=== PATIENT | male | born 1955 | race Caucasian/White ===

== ENCOUNTER 2018-03-19 13:18 | Emergency (ER) | payer MEDICARE ==
[~2018-03-19] VITALS: Ht 177.8 cm; Wt 57.0 kg
[~2018-03-19 13:18] MED LIST: CLON1TAB PO; GABA100C4 PO; LISI-363 PO; SIMV40 PO; ZOLO20CO PO; insulin pump
[2018-03-19 13:27] VITALS: BP 184/87; PULSE 74; RESP 19; TEMP 98.3; O2SAT 98
--- NOTE | 2018-03-19 13:57 | PD ---
HPI Chief Complaint: Skin Problem Time Seen by Provider: 13:39 Travel History International Travel<30 days: No Contact w/Intl Traveler<30days: No Traveled to known affect area: No History of Present Illness HPI The patient is a 62-year-old male who presents to the emergency department for redness and pain to the anterior aspect of the right forearm. The patient states he had an outpatient endoscopy performed on Wednesday, and IV was placed in the right arm, just proximal to the right hand. The patient went home and was feeling well, however, several days later noticed some redness of the volar aspect of the right forearm. The pain radiates up to the right anterior cubital fossa, he does notice red streak with some painful swollen lumps. He denies any fever, chills, or sweats. He is an insulin-dependent diabetic who is currently on an insulin pump. Symptoms are moderate. There are no current alleviating factors. He denies any history of DVT or prior thrombophlebitis. PFSH Past Medical History Anxiety: Yes Depression: Yes High Cholesterol: Yes Diabetes: Yes (TYPE 1) Diminished Hearing: No Hypertension: Yes Social History Alcohol Use: No Tobacco Use: Yes (/ PPD) Substance Use: No Allergies-Medications (Allergen,Severity, Reaction): Coded Allergies: No Known Allergies (Unverified , 06/17/16) Reported Meds & Prescriptions Reported Meds & Active Scripts Active Cleocin (Clindamycin HCl) 150 Mg Cap 150 Mg PO Q6H 7 Days Reported Gabapentin 300 Mg Cap 300 Mg PO BID Lisinopril 10 Mg Tab 10 Mg PO DAILY Simvastatin 40 Mg Tab 40 Mg PO HS Zoloft (Sertraline HCl) 25 Mg Tab 25 Mg PO DAILY Clonazepam 0.5 Mg Tab 0.5 Mg PO BID [insulin pump] Unknown Dose SQ DAILY PRN Simvastatin 40 mg (Simvastatin) 40 Mg Tab 1 Tab PO HS Lisinopril 20 mg (Lisinopril) 20 Mg Tab 1 Tab PO DAILY Clonazepam 1 Mg Tab 0.5 Mg PO Q8 Gabapentin 100 Mg Cap 0 PO Unknown [insulin pump] Zoloft (Sertraline HCl) 20 Mg/Ml Con 0 PO DAILY UNKNOWN DOSE Review of Systems Except as stated in HPI: all other systems reviewed are Neg General / Constitutional: No: Fever, Chills Cardiovascular: No: Chest Pain or Discomfort Respiratory: No: Shortness of Breath Gastrointestinal: No: Nausea, Vomiting Musculoskeletal: Positive: Edema, Pain Skin: Positive Other (As noted in the history of present illness) Endocrine: Positive: Other (Diabetic on an insulin pump) Physical Exam Narrative GENERAL: Awake, alert, pleasant 62-year-old male who appears his stated age and is in no acute respiratory distress. SKIN: Focused skin assessment warm/dry. HEAD: Atraumatic. Normocephalic. EYES: Pupils equal and round. No scleral icterus. No injection or drainage. ENT: No nasal bleeding or discharge. Mucous membranes pink and moist. NECK: Trachea midline. No JVD. CARDIOVASCULAR: Regular rate and rhythm. No murmur appreciated. RESPIRATORY: No accessory muscle use. Clear to auscultation. Breath sounds equal bilaterally. GASTROINTESTINAL: Abdomen soft, non-tender, nondistended. Hepatic and splenic margins not palpable. MUSCULOSKELETAL: The patient has visible thrombophlebitis on the volar aspect of the right forearm. There is an erythematous streak that goes from the volar aspect just proximal to the right hand up the volar aspect to the anterior cubital fossa and near the medial aspect of the proximal right humerus. There are some small painful lumps, presumably lymphadenitis, no significant epitrochlear lymphadenopathy noted. Positive right radial pulse. NEUROLOGICAL: Awake and alert. No obvious cranial nerve deficits. Motor grossly within normal limits. Normal speech. PSYCHIATRIC: Appropriate mood and affect; insight and judgment normal. Data Data Last Documented VS Vital Signs Date Time Temp Pulse Resp B/P (MAP) Pulse Ox O2 Delivery O2 Flow Rate FiO2 03/19/18 14:09 63 18 03/19/18 14:01 98.2 171/86 (114) 97 Room Air Orders Orders Complete Blood Count With Diff (03/19/18 13:50) Comprehensive Metabolic Panel (03/19/18 13:50) Blood Culture (03/19/18 13:50) Lactic Acid (03/19/18 13:50) Us Arm Venous Doppler (03/19/18 ) Sodium Chlor 0.9% 1000 Ml Inj (Ns 1000 M (03/19/18 14:00) Cefazolin 2 Gm Premix (Ancef 2 Gm Premix (03/19/18 14:00) Blood Glucose (03/19/18 13:50) Ed Discharge Order (03/19/18 16:13) Labs Laboratory Tests Test 03/19/18 14:00 White Blood Count 8.2 TH/MM3 Red Blood Count 4.36 MIL/MM3 Hemoglobin 13.8 GM/DL Hematocrit 40.3 % Mean Corpuscular Volume 92.3 FL Mean Corpuscular Hemoglobin 31.5 PG Mean Corpuscular Hemoglobin Concent 34.2 % Red Cell Distribution Width 14.2 % Platelet Count 250 TH/MM3 Mean Platelet Volume 8.0 FL Neutrophils (%) (Auto) 55.6 % Lymphocytes (%) (Auto) 25.2 % Monocytes (%) (Auto) 6.2 % Eosinophils (%) (Auto) 12.1 % Basophils (%) (Auto) 0.9 % Neutrophils # (Auto) 4.5 TH/MM3 Lymphocytes # (Auto) 2.1 TH/MM3 Monocytes # (Auto) 0.5 TH/MM3 Eosinophils # (Auto) 1.0 TH/MM3 Basophils # (Auto) 0.1 TH/MM3 CBC Comment DIFF FINAL Differential Comment Blood Urea Nitrogen 7 MG/DL Creatinine 0.66 MG/DL Random Glucose 162 MG/DL Total Protein 6.7 GM/DL Albumin 3.7 GM/DL Calcium Level 8.2 MG/DL Alkaline Phosphatase 83 U/L Aspartate Amino Transf (AST/SGOT) 21 U/L Alanine Aminotransferase (ALT/SGPT) 31 U/L Total Bilirubin 0.2 MG/DL Sodium Level 131 MEQ/L Potassium Level 3.9 MEQ/L Chloride Level 97 MEQ/L Carbon Dioxide Level 24.3 MEQ/L Anion Gap 10 MEQ/L Estimat Glomerular Filtration Rate 122 ML/MIN Lactic Acid Level 0.6 mmol/L MDM Medical Decision Making Medical Screen Exam Complete: Yes Emergency Medical Condition: Yes Medical Record Reviewed: Yes Interpretation(s) Laboratory Tests Test 03/19/18 14:00 White Blood Count 8.2 TH/MM3 Red Blood Count 4.36 MIL/MM3 Hemoglobin 13.8 GM/DL Hematocrit 40.3 % Mean Corpuscular Volume 92.3 FL Mean Corpuscular Hemoglobin 31.5 PG Mean Corpuscular Hemoglobin Concent 34.2 % Red Cell Distribution Width 14.2 % Platelet Count 250 TH/MM3 Mean Platelet Volume 8.0 FL Neutrophils (%) (Auto) 55.6 % Lymphocytes (%) (Auto) 25.2 % Monocytes (%) (Auto) 6.2 % Eosinophils (%) (Auto) 12.1 % Basophils (%) (Auto) 0.9 % Neutrophils # (Auto) 4.5 TH/MM3 Lymphocytes # (Auto) 2.1 TH/MM3 Monocytes # (Auto) 0.5 TH/MM3 Eosinophils # (Auto) 1.0 TH/MM3 Basophils # (Auto) 0.1 TH/MM3 CBC Comment DIFF FINAL Differential Comment Blood Urea Nitrogen 7 MG/DL Creatinine 0.66 MG/DL Random Glucose 162 MG/DL Total Protein 6.7 GM/DL Albumin 3.7 GM/DL Calcium Level 8.2 MG/DL Alkaline Phosphatase 83 U/L Aspartate Amino Transf (AST/SGOT) 21 U/L Alanine Aminotransferase (ALT/SGPT) 31 U/L Total Bilirubin 0.2 MG/DL Sodium Level 131 MEQ/L Potassium Level 3.9 MEQ/L Chloride Level 97 MEQ/L Carbon Dioxide Level 24.3 MEQ/L Anion Gap 10 MEQ/L Estimat Glomerular Filtration Rate 122 ML/MIN Lactic Acid Level 0.6 mmol/L Last Impressions Upper Extremity Ultrasound 03/19/18 0000 Signed Impressions: CONCLUSION: 1. The study is negative for deep venous thrombosis in the upper extremity. 2. Superficial occlusive thrombus in the cephalic vein. Differential Diagnosis Differential diagnosis includes lymphadenitis, lymphangitis, cellulitis, thrombophlebitis, DVT, bacteremia, septicemia. Narrative Course IV was established, labs are drawn and sent, and the patient was placed on cardiac telemetry monitoring and continuous pulse oximetry return. Ultrasound of the right upper extremity was ordered to rule out DVT. Blood culture and lactic acid were sent to lab. The patient was administered Ancef 2 g intravenously with 1 L of IV fluids. Bedside glucose was evaluated. The patient's bedside blood glucose was 169. White count is unremarkable. CMP is unremarkable except for glucose of 162 and sodium of 131. Lactic acid was within normal limits. Ultrasound is negative for DVT, does reveal superficial occlusive thrombus in the cephalic vein. The patient is advised to continue aspirin, apply warm compresses to the affected area, take antibiotics as directed. Diagnosis Primary Impression: Thrombophlebitis arm Patient Instructions: General Instructions Additional Instructions: Please provide the patient a copy of his ultrasound results and lab results at discharge. Antibiotics as directed. Warm compresses to the right forearm. Return if symptoms worsen or progress. Continue to take an aspirin daily. Med/Other Pt SpecificInfo: Prescription(s) given Scripts Clindamycin (Cleocin) 150 Mg Cap 150 MG PO Q6H for Infection for 7 Days, #28 CAP 0 Refills Prov: Ed Joseph MD 03/19/18 Disposition: 01 DISCHARGE HOME Condition: Stable Ed Joseph MD Mar 19, 2018 13:57
[2018-03-19] MEDS ORDERED: ceFAZolin 2 GM PREMIX 50 ML IV ONE (14:00)
[2018-03-19] MEDS ORDERED: SODIUM CHLOR 0.9% 1000 ML INJ 1,000 ML IV ONE (14:00)
[2018-03-19 14:01] VITALS: BP 171/86; PULSE 68; RESP 18; TEMP 98.2; O2SAT 97
[2018-03-19] MEDS ORDERED: CLON0.5T PO (14:14)
[2018-03-19] MEDS ORDERED: ZOLO25TA PO (14:14)
[2018-03-19] MEDS ORDERED: GABA300C5 PO (14:14)
[2018-03-19] MEDS ORDERED: LISI10TA3 PO (14:14)
[2018-03-19] MEDS ORDERED: insulin pump SQ (14:14)
[2018-03-19] MEDS ORDERED: SIMV40TA PO (14:14)
[2018-03-19 14:16] LABS: AUTOMATED NEUTROPHIL # 4.5 TH/MM3 (1.8-7.7); BASOPHIL # 0.1 TH/MM3 (0-0.2); BASOPHIL % 0.9 % (0.0-2.0); EOSINOPHIL % 12.1 % (0.0-4.0); HEMATOCRIT 40.3 % (39.0-51.0); HEMOGLOBIN 13.8 GM/DL (13.0-17.0); LYMPH % 25.2 % (9.0-44.0); LYMPHOCYTE # 2.1 TH/MM3 (1.0-4.8); MEAN CELL VOLUME 92.3 FL (80.0-100.0); MEAN CORPUSCULAR HEMOGLOBIN 31.5 PG (27.0-34.0); MEAN CORPUSCULAR HGB CONC 34.2 % (32.0-36.0); MONO % 6.2 % (0.0-8.0); MONOCYTE # 0.5 TH/MM3 (0-0.9); NEUT % 55.6 % (16.0-70.0); PLATELET COUNT 250 TH/MM3 (150-450); RED BLOOD COUNT 4.36 MIL/MM3 (4.50-5.90); RED CELL DISTRIBUTION WIDTH 14.2 % (11.6-17.2); WHITE BLOOD COUNT 8.2 TH/MM3 (4.0-11.0)
[2018-03-19 14:37] LABS: ALBUMIN 3.7 GM/DL (3.4-5.0); ALT (GPT) 31 U/L (12-78); AST (GOT) 21 U/L (15-37); BICARBONATE 24.3 MEQ/L (21.0-32.0); BLOOD UREA NITROGEN 7 MG/DL (7-18); CALCIUM 8.2 MG/DL (8.5-10.1); CHLORIDE 97 MEQ/L (98-107); CREATININE 0.66 MG/DL (0.60-1.30); GLOMERULAR FILTRATION RATE 122 ML/MIN (>89); GLUCOSE,RANDOM 162 MG/DL (74-106); SODIUM (NA) 131 MEQ/L (136-145)
[2018-03-19 14:40] LABS: ALKALINE PHOSPHATASE 83 U/L (45-117); TOTAL BILIRUBIN ADULT 0.2 MG/DL (0.2-1.0); TOTAL PROTEIN 6.7 GM/DL (6.4-8.2)
[2018-03-19] MEDS ORDERED: CLIN150 PO (15:52)
--- NOTE | 2018-03-19 16:03 | RADRPT ---
EXAM DATE: 03/19/2018 3:49 PM EDT AGE/SEX: 62 years / Male INDICATIONS: Right arm pain and redness. CLINICAL DATA: This is the patient's initial encounter. Patient reports that signs and symptoms have been present for 4 - 6 days and indicates a pain score of 8/10. MEDICAL/SURGICAL HISTORY: Hypercholesterolemia. Hypertension. Diabetes type 1. Depression. Anx iety. . COMPARISON: No prior exams available for comparison. FINDINGS: There is spontaneous flow documented in the brachial, basilic, axillary, and subclavian veins. The v essels are compressible and augmentation response is documented. No filling defects are seen. The f low is phasic with respiration. Direction of flow in the jugular vein is caudal. There is occlusive thrombus and absent flow in the cephalic vein. CONCLUSION: 1. The study is negative for deep venous thrombosis in the upper extremity. 2. Superficial occlusive thrombus in the cephalic vein. Electronically signed by: Jeancarlos Clement MD 03/19/2018 4:01 PM EDT
== END 2018-03-19 16:30 | disposition home or self-care (01) ==
LOC: NEPE 13:18
DX: I80.8 Phlebitis and thrombophlebitis of other sites (principal); E10.9 Type 1 diabetes mellitus without complications; I10 Essential (primary) hypertension; E78.00 Pure hypercholesterolemia, unspecified; F41.8 Other specified anxiety disorders; F17.200 Nicotine dependence, unspecified, uncomplicated; Z79.4 Long term (current) use of insulin
CPT/HCPCS: 80053; 83605; 85025; 87040; 93971; 96374; 99284; J0690; J7030